=== PATIENT | male | born 1960 | race Caucasian/White ===

== ENCOUNTER 2016-08-28 01:22 | Inpatient (IN) | payer SELFPAY ==
[~2016-08-28] VITALS: Ht 188 cm; Wt 110.0 kg
[2016-08-28 01:30] VITALS: BP 149/74; PULSE 70; RESP 22; TEMP 98.4; O2SAT 100
--- NOTE | 2016-08-28 01:50 | PD ---
HPI Chief Complaint: Psychiatric Symptoms Time Seen by Provider: 01:44 Travel History International Travel<30 days: No Contact w/Intl Traveler<30days: No Traveled to known affect area: No History of Present Illness HPI Patient is 55-year-old male brought into the emergency room under Reyna act due to suicidal ideations. Patient sent text messages to his girlfriend stating that he was going to end his life. Patient denies any suicidal or homicidal ideations at this time. He denies any previous psychiatric history. He denies any physical complaints at this time. [facility] Past Medical History Medical History: Denies Significant Hx Social History Tobacco Use: Yes Substance Use: Yes Allergies-Medications (Allergen,Severity, Reaction): Coded Allergies: No Known Allergies (Unverified , 08/28/16) Reported Meds & Prescriptions Reported Meds & Active Scripts Active No Active Prescriptions or Reported Medications Review of Systems Except as stated in HPI: all other systems reviewed are Neg Psychiatric: Positive: Suicidal Ideations Physical Exam Narrative GENERAL: Overweight, well-developed, disheveled male. SKIN: Focused skin assessment warm/dry. HEAD: Atraumatic. Normocephalic. EYES: Pupils equal and round. No scleral icterus. No injection or drainage. ENT: No nasal bleeding or discharge. Mucous membranes pink and moist. NECK: Trachea midline. No JVD. CARDIOVASCULAR: Regular rate and rhythm. No murmur appreciated. RESPIRATORY: No accessory muscle use. Clear to auscultation. Breath sounds equal bilaterally. GASTROINTESTINAL: Abdomen soft, non-tender, nondistended. Hepatic and splenic margins not palpable. MUSCULOSKELETAL: No obvious deformities. No clubbing. No cyanosis. No edema. NEUROLOGICAL: Awake and alert. No obvious cranial nerve deficits. Motor grossly within normal limits. Normal speech. PSYCHIATRIC: Appropriate mood and affect; insight and judgment normal. Data Data Last Documented VS Vital Signs Date Time Temp Pulse Resp B/P Pulse Ox O2 Delivery O2 Flow Rate FiO2 08/28/16 01:30 98.4 70 22 149/74 100 Orders Complete Blood Count With Diff (08/28/16 01:28) Comprehensive Metabolic Panel (08/28/16 01:28) Urinalysis - C+S If Indicated (08/28/16 01:28) Psych Screen (08/28/16 01:28) Drug Screen, Random Urine (08/28/16 01:28) Alcohol (Ethanol) (08/28/16 01:28) Salicylates (Aspirin) (08/28/16 01:28) Tylenol (Acetaminophen) (08/28/16 01:28) Restraints Non-Violent AUDREY.Q3H (08/28/16 01:40) Haloperidol Inj (Haldol Inj) (08/28/16 02:30) Haloperidol Inj (Haldol Inj) (08/28/16 02:31) Urine Culture (08/28/16 02:35) Ceftriaxone Inj (Rocephin Inj) (08/28/16 03:00) Labs Laboratory Tests Test 08/28/16 08/28/16 01:48 02:35 White Blood Count 6.3 TH/MM3 Red Blood Count 4.32 MIL/MM3 Hemoglobin 14.0 GM/DL Hematocrit 41.3 % Mean Corpuscular Volume 95.6 FL Mean Corpuscular Hemoglobin 32.3 PG Mean Corpuscular Hemoglobin 33.8 % Concent Red Cell Distribution Width 13.4 % Platelet Count 201 TH/MM3 Mean Platelet Volume 9.1 FL Neutrophils (%) (Auto) 57.1 % Lymphocytes (%) (Auto) 30.2 % Monocytes (%) (Auto) 9.2 % Eosinophils (%) (Auto) 2.5 % Basophils (%) (Auto) 1.0 % Neutrophils # (Auto) 3.6 TH/MM3 Lymphocytes # (Auto) 1.9 TH/MM3 Monocytes # (Auto) 0.6 TH/MM3 Eosinophils # (Auto) 0.2 TH/MM3 Basophils # (Auto) 0.1 TH/MM3 CBC Comment DIFF FINAL Differential Comment Sodium Level 143 MEQ/L Potassium Level 3.8 MEQ/L Chloride Level 108 MEQ/L Carbon Dioxide Level 28.3 MEQ/L Anion Gap 7 MEQ/L Blood Urea Nitrogen 8 MG/DL Creatinine 0.68 MG/DL Estimat Glomerular Filtration 122 ML/MIN Rate Random Glucose 87 MG/DL Calcium Level 8.3 MG/DL Total Bilirubin 0.5 MG/DL Aspartate Amino Transf 43 U/L (AST/SGOT) Alanine Aminotransferase 52 U/L (ALT/SGPT) Alkaline Phosphatase 61 U/L Total Protein 7.0 GM/DL Albumin 3.0 GM/DL Salicylates Level 1.7 MG/DL Acetaminophen Level LESS THAN 2.0 MCG/ML Ethyl Alcohol Level LESS THAN 3 MG/DL Urine Color YELLOW Urine Turbidity CLEAR Urine pH 6.5 Urine Specific [place] 1.009 Urine Protein NEG mg/dL Urine Glucose (UA) NEG mg/dL Urine Ketones NEG mg/dL Urine Occult Blood SMALL Urine Nitrite NEG Urine Bilirubin NEG Urine Urobilinogen LESS THAN 2.0 MG/DL Urine Leukocyte Esterase MOD Urine RBC 5 /hpf Urine WBC 9 /hpf Urine Squamous Epithelial 1 /hpf Cells Urine Renal Epithelial Cells <1 /hpf Urine Hyaline Casts 1 /lpf Urine Mucus FEW /lpf Microscopic Urinalysis Comment CULTURE INDICATED Urine Opiates Screen NEG Urine Barbiturates Screen NEG Urine Amphetamines Screen POS Urine Benzodiazepines Screen NEG Urine Cocaine Screen NEG Urine Cannabinoids Screen POS MDM Medical Decision Making Medical Screen Exam Complete: Yes Emergency Medical Condition: Yes Interpretation(s) Vital Signs Date Time Temp Pulse Resp B/P Pulse Ox O2 Delivery O2 Flow Rate FiO2 08/28/16 01:30 98.4 70 22 149/74 100 Differential Diagnosis Mood disorder versus substance abuse versus depression versus suicidal ideations versus psychosis versus other Narrative Course Patient's 55-year-old male presenting to emergency Department under Reyna act for suicidal ideations. Mental health screening discussed with the patient. Psychiatric screen ordered. When initial attempt was made to obtain labs patient became aggressive towards staff, restraints ordered for safety of staff as well as patient. Patient continues to be disruptive and aggressive despite being in restraints. He is attempting to harm himself while in the restraints. Haldol ordered IM times one dose. CBC is unremarkable Chemistries unremarkable Urine drug screen is positive for amphetamine and marijuana Salicylate level, acetaminophen level, alcohol are unremarkable Urinalysis with elevated white blood cells, moderate leukocyte esterase. Patient given Rocephin IM times one dose. A prescription will be written for Keflex. Patient is medically cleared for psychiatric evaluation at this time. Diagnosis Primary Impression: Medical clearance for psychiatric admission Additional Impressions: Suicidal ideation Urinary tract infection Qualified Code: N39.0 - Urinary tract infection with hematuria, site unspecified Med/Other Pt SpecificInfo: Prescription(s) given Scripts Cephalexin (Keflex)500 Mg [id number] Mg PO Q8H 7 Days Ref 0 Prov:Ines Jamil 08/28/16 Condition: Stable Ines Jamil Aug 28, 2016 01:50
[2016-08-28 02:08] LABS: AUTOMATED NEUTROPHIL # 3.6 TH/MM3 (1.8-7.7); BASOPHIL # 0.1 TH/MM3 (0-0.2); EOSINOPHIL # 0.2 TH/MM3 (0-0.4); EOSINOPHIL % 2.5 % (0.0-4.0); HEMATOCRIT 41.3 % (39.0-51.0); HEMO FLAGS DIFF FINAL; LYMPH % 30.2 % (9.0-44.0); LYMPHOCYTE # 1.9 TH/MM3 (1.0-4.8); MEAN CELL VOLUME 95.6 FL (80.0-100.0); MEAN CORPUSCULAR HEMOGLOBIN 32.3 PG (27.0-34.0); MEAN CORPUSCULAR HGB CONC 33.8 % (32.0-36.0); MONO % 9.2 % (0.0-8.0); NEUT % 57.1 % (16.0-70.0); PLATELET COUNT 201 TH/MM3 (150-450); RED BLOOD COUNT 4.32 MIL/MM3 (4.50-5.90); RED CELL DISTRIBUTION WIDTH 13.4 % (11.6-17.2); WHITE BLOOD COUNT 6.3 TH/MM3 (4.0-11.0)
[2016-08-28 02:13] LABS: ALT (GPT) 52 U/L (12-78); ANION GAP 7 MEQ/L (5-15); AST (GOT) 43 U/L (15-37); BICARBONATE 28.3 MEQ/L (21.0-32.0); BLOOD UREA NITROGEN 8 MG/DL (7-18); CHLORIDE 108 MEQ/L (98-107); GLOMERULAR FILTRATION RATE 122 ML/MIN (>89); POTASSIUM 3.8 MEQ/L (3.5-5.1); SODIUM (NA) 143 MEQ/L (136-145)
[2016-08-28 02:15] LABS: ACETAMINOPHEN LESS THAN 2.0 MCG/ML (10.0-30.0); ALKALINE PHOSPHATASE 61 U/L (45-117); TOTAL BILIRUBIN ADULT 0.5 MG/DL (0.2-1.0)
[2016-08-28] MEDS ORDERED: HALOPERIDOL LACTATE 5 MG/ML AMP IM ONE (02:30)
[2016-08-28] MEDS ORDERED: HALOPERIDOL LACTATE 5 MG/ML AMP ONE (02:31)
[2016-08-28 02:43] LABS: BLOOD, URINE SMALL (NEG); COMMENT (UR) CULTURE INDICATED; CULTURE IF INDICATED CULTURE INDICATED; GLUCOSE,URINE NEG (NEG); HYALINE CAST, URINE 1 /lpf (RARE); KETONE, URINE NEG (NEG); MUCUS URINE FEW /lpf (OCC); NITRITE,URINE NEG (NEG); PH, URINE 6.5 (5.0-8.5); RENAL EPITHELIAL CELLS <1 /hpf; SQUAMOUS EPITHELIAL CELL URINE 1 /hpf (0-5); URINE COLOR YELLOW (YELLW/STRAW)
[2016-08-28 02:49] LABS: AMPHETAMINE, URINE POS (NEG); BARBITURATES, URINE NEG (NEG); COCAINE, URINE NEG (NEG)
[2016-08-28] MEDS ORDERED: CEPH-460 PO (03:04)
[2016-08-28 03:58] VITALS: BP 126/60; PULSE 64; RESP 18; O2SAT 96
[2016-08-28 06:24] VITALS: BP 136/76; PULSE 67; RESP 20; TEMP 98.2; O2SAT 99
--- NOTE | 2016-08-28 10:42 | PD ---
History of Present Illness Chief Complaint: Psychiatric Symptoms Time Seen by Provider: 09:50 Travel History International Travel<30 Days: No Contact w/Intl Traveler<30days: No Known affected area: No Legal Status Legal Status: Reyna Act Reyna Act Signed By: Amrit Rolle History of Present Illness: History of Present Illness HPI Patient is 55-year-old male with no reported psychiatric history who is brought into the emergency room under Reyna act initiated by ANTHONY. As per the BA report he sent text messages to his ex girlfriend stating that he hoped to go to sleep forever as well as wishing to be with Iban. Patient sent text messages to his girlfriend stating that he was going to end his life including that he was thinking of jumping off the [employer] bridge. That he was going to take a bunch of pills. Copies of the messages have been included in the BA. Current toxicology is positive for amphetamines as well as cannabinoids. Patient is seen this morning. He appears older than stated age. He is disheveled with poor hygiene. He is calm. Appears depressed. Speech is clear and logical. No psychosis. No kristin. He denies suicidality at this time and states that he just wanted to get a reaction out of his girlfriend. He would like to have her come back to the home . Does report multiple losses including loss of relationship of 8 years, loss of job, little to no support. He does not give permission for me to speak with his friend in order to obtain collateral information. [facility] Past Medical History Medical History: Denies Significant Hx Past Surgical History Surgical History: Unable to Obtain Psychiatric History Psychiatric History Hx Psychiatric Treatment: PATIENT DENIES History of Inpatient Treatment: No Guns or firearms in home: No Social History [place] male. Lives with a roommate. Unemployed. Had been working in a factory. Hx Alcohol Use: No Hx Tobacco Use: Yes Hx Substance Use: Yes Substance Use Type: Marijuana, Amphetamines-Stimulants Hx of Substance Use Treatment: No Family Psychiatric History None reported Allergies-Medications (Allergen,Severity, Reaction): Coded Allergies: No Known Allergies (Unverified , 08/28/16) Reported Meds & Prescriptions Reported Meds & Active Scripts Active Keflex (Cephalexin) 500 Mg Capsule 500 Mg PO Q8H 7 Days Review of Systems Except as stated in HPI: all other systems reviewed are Neg Exam Alert: Yes [place]: Person (ox4) Mood: Depressed Affect: Restricted Speech: Clear, Logical Eye Contact: Normal Memory Intact: Comment (no impairmetn) Hallucinations: Other (negative) Delusions: No Suicidal: Ideation (deneis any) Homicidal: Ideation (deneis any) Insight/Judgement Poor. Poor MDM Medical Decision Making Medical Record Reviewed: Yes Assessment/Plan 55 year old male with no reported previous psychiatric history, no previous contact with [facility] psychiatry, positive toxicology for amphetamines and cannabinoids who sent several text messages to his ex girlfriend indicating he was suicidal. At this time he is denying suicidal ideation but due to above stated factors it is determined that he will continue under a BA in order to further evaluate for suicidality . He also may benefit from initiation of treatment for sxs of depression. Orders Complete Blood Count With Diff (08/28/16 01:28) Comprehensive Metabolic Panel (08/28/16 01:28) Urinalysis - C+S If Indicated (08/28/16 01:28) Psych Screen (08/28/16 01:28) Drug Screen, Random Urine (08/28/16 01:28) Alcohol (Ethanol) (08/28/16 01:28) Salicylates (Aspirin) (08/28/16 01:28) Tylenol (Acetaminophen) (08/28/16 01:28) Restraints Non-Violent AUDREY.Q3H (08/28/16 01:40) Haloperidol Inj (Haldol Inj) (08/28/16 02:30) Haloperidol Inj (Haldol Inj) (08/28/16 02:31) Urine Culture (08/28/16 02:35) Ceftriaxone Inj (Rocephin Inj) (08/28/16 03:00) Diet Regular Basic (08/28/16 Breakfast) Results Vital Signs Date Time Temp Pulse Resp B/P Pulse Ox O2 Delivery O2 Flow Rate FiO2 08/28/16 06:24 98.2 67 20 136/76 99 Room Air 08/28/16 03:58 64 18 126/60 96 Room Air 08/28/16 01:30 98.4 70 22 149/74 100 Laboratory Tests Test 08/28/16 08/28/16 01:48 02:35 White Blood Count 6.3 Red Blood Count 4.32 Hemoglobin 14.0 Hematocrit 41.3 Mean Corpuscular Volume 95.6 Mean Corpuscular Hemoglobin 32.3 Mean Corpuscular Hemoglobin 33.8 Concent Red Cell Distribution Width 13.4 Platelet Count 201 Mean Platelet Volume 9.1 Neutrophils (%) (Auto) 57.1 Lymphocytes (%) (Auto) 30.2 Monocytes (%) (Auto) 9.2 Eosinophils (%) (Auto) 2.5 Basophils (%) (Auto) 1.0 Neutrophils # (Auto) 3.6 Lymphocytes # (Auto) 1.9 Monocytes # (Auto) 0.6 Eosinophils # (Auto) 0.2 Basophils # (Auto) 0.1 CBC Comment DIFF FINAL Differential Comment Sodium Level 143 Potassium Level 3.8 Chloride Level 108 Carbon Dioxide Level 28.3 Anion Gap 7 Blood Urea Nitrogen 8 Creatinine 0.68 Estimat Glomerular Filtration 122 Rate Random Glucose 87 Calcium Level 8.3 Total Bilirubin 0.5 Aspartate Amino Transf 43 (AST/SGOT) Alanine Aminotransferase 52 (ALT/SGPT) Alkaline Phosphatase 61 Total Protein 7.0 Albumin 3.0 Salicylates Level 1.7 Acetaminophen Level LESS THAN 2.0 Ethyl Alcohol Level LESS THAN 3 Urine Color YELLOW Urine Turbidity CLEAR Urine pH 6.5 Urine Specific [place] 1.009 Urine Protein NEG Urine Glucose (UA) NEG Urine Ketones NEG Urine Occult Blood SMALL Urine Nitrite NEG Urine Bilirubin NEG Urine Urobilinogen LESS THAN 2.0 Urine Leukocyte Esterase MOD Urine RBC 5 Urine WBC 9 Urine Squamous Epithelial 1 Cells Urine Renal Epithelial Cells <1 Urine Hyaline Casts 1 Urine Mucus FEW Microscopic Urinalysis Comment CULTURE INDICATED Urine Opiates Screen NEG Urine Barbiturates Screen NEG Urine Amphetamines Screen POS Urine Benzodiazepines Screen NEG Urine Cocaine Screen NEG Urine Cannabinoids Screen POS Date/Time Procedure Status Source Growth 08/28/16 02:35 Urine Culture Received Urine Random Urine Pending Diagnosis Primary Impression: Suicidal ideation Additional Impression: Adjustment disorder Admitting Information Admitting Physician Requests: Admit Prescriptions Cephalexin (Keflex)500 Mg [id number] Mg PO Q8H 7 Days Ref 0 Prov:Ines Jamil 08/28/16 Condition: Stable Problem Qualifiers Additional Impression: Adjustment disorder Qualified Code: F43.21 - Adjustment disorder with depressed mood Holli Liraino [facility] Aug 28, 2016 10:42
[2016-08-28 12:54] VITALS: BP 111/58; PULSE 60; RESP 18; O2SAT 96
[2016-08-28] MEDS ORDERED: ACETAMINOPHEN 325 MG TAB PO PRN (14:45)
[2016-08-28] MEDS ORDERED: ALUMINUM/MAGNESIUM/SIMETH 30 ML CUP PO PRN (14:45)
[2016-08-28] MEDS ORDERED: MAGNESIUM HYDROXIDE SUSP 30 ML CUP PO PRN (14:45)
[2016-08-28 15:56] VITALS: BP 130/76; PULSE 85; RESP 16; TEMP 97.9; O2SAT 97
[2016-08-29 06:18] VITALS: BP 131/64; PULSE 77; RESP 18; TEMP 98.1; O2SAT 97
[2016-08-29] MEDS ORDERED: ALUMINUM/MAGNESIUM/SIMETH 30 ML CUP PO PRN (11:30)
[2016-08-29] MEDS ORDERED: MAGNESIUM HYDROXIDE SUSP 30 ML CUP PO PRN (11:30)
[2016-08-29] MEDS ORDERED: ACETAMINOPHEN 325 MG TAB PO PRN (11:30)
--- NOTE | 2016-08-29 11:48 | HHI.HP ---
Provisional Diagnosis Admission Date Aug 28, 2016 at 14:56 [place]. Adjustment disorder with depressed mood F 43.1 marijuana abuse, methamphetamine abuse Certification of Person's Competence To Provide Express and Informed Consent I have personally examined Nicholas Bolaños , a person being served at [facility] on, Aug 29, 2016 11:37. Express and informed consent means consent voluntarily given in writing, by a competent person, after sufficient explanation and disclosure of the subject matter involved to enable the person to make a knowing and willful decision without any element of force, fraud, deceit, duress, or other form of constraint or coercion. This person is 18 years of age or older, is not now known to be incompetent to consent to treatment with a guardian advocate, and does not have a health care surrogate or proxy currently making medical treatment decisions. I have found this person to be one of the following: [xx] Competent to provide express and informed consent, as defined above, for voluntary admission to this facility and is competent to provide express and informed consent for treatment. He/she has the consistent capacity to make well reasoned, willful, and knowing decisions concerning his or her medical or mental health treatment. The person fully and consistently understands the purpose of the admission for examination/placement and is fully capable of personally exercising all rights assured [place] Incompetent to provide express and informed consent to voluntary admission, and this is incompetent to provide express and informed consent to treatment. The person must be transferred to involuntary status and a petition for a guardian advocate filed with the Circuit Court. [] Refusing to provide express and informed consent to voluntary admission but is competent to provide express and informed consent for treatment. The person must be discharged or transferred to involuntary status. Form shall be completed within 24 hours of a person's arrival at the receiving facility and filed in the clinical record of each person: 1. Admitted on a voluntary basis 2. Permitted to provide express and informed consent to his/her own treatment 3. Allowed to transfer from involuntary to voluntary status 4. Prior to permitting a person to consent to his or her own treatment after having been previously found incompetent to consent to treatment. History of Present Illness Capacity: Has Capacity HPI Patient is a 55 white male initially comes the ED under Reyna act by the [facility] dated 11/28/16 and 003 8 AM that document reviewed and agreed with basically stating that the patient sent a text to his ex-girlfriend stating he hope to go to sleep forever and that he wished to be with Iban it appears they will through tough breakup with his ex-girlfriend that his roommate recommend name Darvin Byrne did confirm that the patient had been depressed all day but did not make any verbal suicidal statements. Patient seen screened in the ED urine toxicology positive for methamphetamine and marijuana. Patient seen in his room with medical student Holger nurse Riccardo and counselor Iraida. 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 He states he had about an 8 year interval of sobriety prior to this. The acknowledges multiple detox and rehabilitation in the past. Denying any legal issues related to his drug use. He denies any prior psychiatric contact hospitalization her psychotropic medications. He denies suicidality homicidality. Stating those text messages were attempt to gain simply from his girlfriend. To keep her with. Him. Patient states family of origin is multiple alcoholic members. He denies any significant physical or sexual abuse. Denies any past service. Denies any past incarcerations. Denies any significant medical problems. At this time patient does not meet Reyna criteria will lift Reyna act. We will allow him to discharge himself, no Rx by me, referred Mr. Holloway act outpatient voluntary substance abuse assessment. Refer also to NA Review of Systems Constitutional: DENIES: Diaphoretic episodes, Fatigue, Fever, Weight gain, Weight loss, Chills, Dizziness, Change in appetite, Night Sweats Endocrine: DENIES: Heat/cold intolerance, Polydipsia, Polyuria, Polyphagia Eyes: DENIES: Blurred vision, Diplopia, Eye inflammation, Eye pain, Vision loss , Photosensitivity, Double Vision Ears, nose, mouth, throat: DENIES: Tinnitus, Hearing loss, Vertigo, Nasal discharge, Oral lesions, Throat pain, Hoarseness, Ear Pain, Running Nose, Epistaxis, Sinus Pain, Toothache, Odynophagia Respiratory: DENIES: Apneas, Cough, Snoring, Wheezing, Hemoptysis, Sputum production, Shortness of breath Cardiovascular: DENIES: Chest pain, Palpitations, Syncope, Dyspnea on Exertion , PND, Lower Extremity Edema, Orthopnea, Claudication Gastrointestinal: DENIES: Abdominal pain, Black stools, Bloody stools, Constipation, Diarrhea, Nausea, Vomiting, Difficulty Swallowing, Anorexia Genitourinary: DENIES: Sexual dysfunction, Urinary frequency, Urinary incontinence, Urgency, Hematuria, Dysuria, Nocturia, Penile Discharge, Testicular Pain, Testicular Swelling Musculoskeletal: DENIES: Joint pain, Muscle aches, Stiffness, Joint Swelling, Back pain, Neck pain Integumentary: DENIES: Abnormal pigmentation, Nail changes, Pruritus, Rash Hematologic/lymphatic: DENIES: Bruising, Lymphadenopathy Immunologic/allergic: DENIES: Eczema, Urticaria Neurologic: DENIES: Abnormal gait, Headache, Localized weakness, Paresthesias, Seizures, Speech Problems, Tremor, Poor Balance Psychiatric: COMPLAINS OF: Depression Past Psych History Psychological trauma history Patient denies Violence risk - others (6 mos) Low Violence risk - self (6 mos) Low Substance Abuse History Drugs/Alcohol past 12 months Act marijuana and methamphetamine abuser Past Family Social History Coded Allergies: No Known Allergies (Unverified , 08/28/16) Past Medical History Denies significant medical history Active Scripts Cephalexin (Keflex)500 Mg [id number] Mg PO Q8H 7 Days Ref 0 Prov:Ines Jamil 08/28/16 Current Medications Medications (Trade) Dose Ordered Sig/[place] Route Start Time Stop Time Status Last Admin (Tylenol) 650 mg Q4H PRN PO 08/28/16 14:45 (Milk Of Magnesia Liq) 30 ml DAILY PRN PO 08/28/16 14:45 (Mag-Al Plus Susp Liq) 30 ml Q6H PRN PO 08/28/16 14:45 Family History Long history alcohol and substance issues with family of origin and extended family Social History Patient had recent breakup with his girlfriend of 11 years, denies previous marriages denies having any children Patient's Strengths (min. 2) Patient verbal labile access healthcare Physical Exam Patient seen screened in ED exam reviewed and agreed with patient sitting quietly in his room no acute distress, neck is supple no respiratory distress, abdomen soft nontender. Patient moves all 4 extremities without difficulty no abnormal motor movements noted Vital Signs Vital Signs Date Time Temp Pulse Resp B/P Pulse Ox O2 Delivery O2 Flow Rate FiO2 08/29/16 06:18 98.1 77 18 131/64 97 08/28/16 12:54 Room Air I/O 08/28/16 08/28/16 08/29/16 08:00 16:00 00:00 Output Total 200 ml Balance -200 ml Mental Status Examination Alert oriented somewhat disheveled white male sitting calmly in his room with staff as mentioned above, he has fair eye contact Appearance Somewhat disheveled Speech: Unremarkable Orientation: x3 Memory: Unremarkable Thought Process: Logical, Linear (somewhat) Thought Content: Unremarkable Language Poor Fund of Knowledge Poor Hallucination Type: None Attention and Concentration: Other (fair) Suicidal Ideation: No (denies) Previous Suicide Attempts: No (denies) Homicidal Ideation: No (denies) Previous Homicide Attempts: No (denies) Insight: Poor Judgment: Poor Affect: Other (decreased range and intensity) Mood: Euthymic (to mildly dysphoric) Motor Activity: Normal gait Assessment & Plan Problem List: (1) Adjustment disorder ICD Code: F43.20 Assessment & Plan Estimated LOS: days patient does not meet Reyna criteria will lift Reyna act patient discharged today to himself, no Rx by me, referrer [facility] act outpatient voluntary substance abuse assessment. Refer also to NA Discharge Planning To be determined Request HC Surrog/Guard Advoc?: No Problem Qualifiers (1) Adjustment disorder: Qualified Code: F43.21 - Adjustment disorder with depressed mood Ray Lai MD Aug 29, 2016 11:47
--- NOTE | 2016-08-29 11:52 | HHI.DS ---
Psychiatry Discharge Summary Inpatient Psychiatric care?: Yes Advance Directive: No Reason Not Provided: Due to Patient Condition Mental Health AdvanceDirective: No Health Care Proxy: No Admission Admission Date Aug 28, 2016 at 14:56 Admission Diagnosis: (1) Adjustment disorder ICD Code: F43.20 Brief History Patient is a 55 white male initially comes the ED under Reyna act by the [facility] dated 11/28/16 and 003 8 AM that document reviewed and agreed with basically stating that the patient sent a text to his ex-girlfriend stating he hope to go to sleep forever and that he wished to be with Iban it appears they will through tough breakup with his ex-girlfriend that his roommate recommend name Darvin Byrne did confirm that the patient had been depressed all day but did not make any verbal suicidal statements. Patient seen screened in the ED urine toxicology positive for methamphetamine and marijuana. Patient seen in his room with medical student [employer] nurse Riccardo and counselor Iraida. 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 He states he had about an 8 year interval of sobriety prior to this. The acknowledges multiple detox and rehabilitation in the past. Denying any legal issues related to his drug use. He denies any prior psychiatric contact hospitalization her psychotropic medications. He denies suicidality homicidality. Stating those text messages were attempt to gain simply from his girlfriend. To keep her with. Him. Patient states family of origin is multiple alcoholic members. He denies any significant physical or sexual abuse. Denies any past service. Denies any past incarcerations. Denies any significant medical problems. At this time patient does not meet Axel criteria will lift Reyna act. We will allow him to discharge himself, no Rx by me, referred [facility] act outpatient voluntary substance abuse assessment. Refer also to NA Tobacco Use In Past 30 Days: 5 or More Cigarettes/Day Alcohol Use: 2-4 Times Per Month Hospital Course Please see dictation under brief history. Patient denies suicidality homicidality voices or visions. Patient does not meet Axel criteria will lift Reyna act. Patient was discharged from self. No Rx by me. Referred to [facility] voluntary substance abuse assessment. Refer also to NA Results Blood Pressure 131 / 64 Vital Signs Date Time Temp Pulse Resp B/P Pulse Ox O2 Delivery O2 Flow Rate FiO2 08/29/16 06:18 98.1 77 18 131/64 97 08/28/16 12:54 Room Air Laboratory Tests Test 08/28/16 08/28/16 01:48 02:35 Red Blood Count 4.32 MIL/MM3 (4.50-5.90) Monocytes (%) (Auto) 9.2 % (0.0-8.0) Chloride Level 108 MEQ/L (98-107) Calcium Level 8.3 MG/DL (8.5-10.1) Aspartate Amino Transf 43 U/L (15-37) (AST/SGOT) Albumin 3.0 GM/DL (3.4-5.0) Salicylates Level 1.7 MG/DL (2.8-20.0) Acetaminophen Level LESS THAN 2.0 MCG/ML (10.0-30.0) Urine Occult Blood SMALL (NEG) Urine Leukocyte Esterase MOD (NEG) Urine RBC 5 /hpf (0-3) Urine WBC 9 /hpf (0-5) Urine Mucus FEW /lpf (OCC) Urine Amphetamines Screen POS (NEG) Urine Cannabinoids Screen POS (NEG) Summary of Procedures None done Pending results at discharge: No Medications # of Antipsychotic meds at D/C: 0 Approp Antipsych med options 1 - Minimum of three failed multiple trials of monotherapy. 2 - Documented plan to taper to monotherapy due to previous use of multiple meds OR cross-taper in progress at D/C. 3 - Documentation of augmentation of Clozapine. 4 - Justification other than those listed in allowable values 1-3, document here : Discharge Discharge Date: Aug 29, 2016 Discharge Diagnosis: (1) Adjustment disorder Diagnosis: Principal ICD Code: F43.20 Mental Status Exam at Disch Alert oriented somewhat disheveled white male sitting calmly in his room with staff as mentioned above. He is normoactive. His mood is euthymic to mildly restricted with decreased range intensity was affect. Speech rate and rhythm within normal limits though no formal thought disorders. No auditory or visual hallucinations no delusions noted insight and judgment poor cognition grossly Pt Condition on Discharge: Stable Discharge Disposition: Discharge Home Discharge Instructions Diet Instructions: As Tolerated, No Restrictions Activities you can perform: Regular-No Restrictions Scheduled Appointment: [facility] Appointment Date: Aug 30, 2016 Appointment Time: 7:30am Discharge Time > 30 minutes Discharge/Advance Care Plan Health Problems: (1) Adjustment disorder Goals to promote your health * To prevent worsening of your condition and complications * To maintain your health at the optimal level Directions to meet your goals Take your medications as prescribed Follow your dietary instruction Follow activity as directed Keep your appointments as scheduled Take your immunizations and boosters as scheduled If your symptoms worsen call your PCP, if no PCP go to Urgent Care Center or Emergency Room For 30/09 questions related to your inpatient stay or results of tests pending at discharge, please contact Dr. Ray Lai at Smoking is Dangerous to Your Health. Avoid second hand smoking Problem Qualifiers (1) Adjustment disorder: Qualified Code: F43.21 - Adjustment disorder with depressed mood Ray Lai MD Aug 29, 2016 11:52
== END 2016-08-29 12:20 | disposition home or self-care (01) | DRG 881 ==
LOC: NEPD 01:22 → NEDA 14:56 → H260 15:15
PROVIDERS: ADMIT Psychiatry & Neurology Psychiatry; ATTEND Psychiatry & Neurology Psychiatry
DX: F43.21 Adjustment disorder with depressed mood (principal); R45.851 Suicidal ideations; N39.0 Urinary tract infection, site not specified; F17.210 Nicotine dependence, cigarettes, uncomplicated; F12.10 Cannabis abuse, uncomplicated; F15.10 Other stimulant abuse, uncomplicated; Z78.1 Physical restraint status
CPT/HCPCS: 80053; 80307; 81001; 85025; 87086; 96372; J0696; J1630